=== PATIENT | male | born 1995 | race Caucasian/White ===

== ENCOUNTER 2018-04-30 08:56 | Emergency (ER) | payer MEDICAID, OTHER ==
[~2018-04-30] VITALS: Ht 188 cm; Wt 96.0 kg
[2018-04-30] MEDS ORDERED: CEFTRIAXONE SODIUM 250 MG/VIAL IM ONE (10:00)
[2018-04-30] MEDS ORDERED: IBUPROFEN 800MG TABLET PO ONE (10:00)
[2018-04-30] MEDS ORDERED: PHENAZOPYRIDINE HCL 100MG TABLET PO ONE (10:00)
[2018-04-30] MEDS ORDERED: AZITHROMYCIN 500 MG TABLET PO ONE (10:00)
[2018-04-30 10:41] LABS: CLARITY URINE CLOUDY (CLEAR); COLOR URINE YELLOW (YELLOW); KETONES URINE 3+ (NEGATIVE); LEUKOCYTE ESTERASE URINE 1+ (NEGATIVE); NITRITE URINE NEGATIVE (NEGATIVE); OCCULT BLOOD URINE 2+ (NEGATIVE); PROTEIN URINE 2+ (NEGATIVE); SPECIFIC GRAVITY URINE 1.048 (1.005-1.030)
[2018-04-30 10:51] VITALS: BP 146/78
[2018-05-01 09:11] LABS: HIV SCREEN 4G Non Reactive (Non Reactive)
== END 2018-04-30 10:55 | disposition home or self-care (01) ==
LOC: ER 09:58
DX: R30.0 Dysuria (principal); E11.9 Type 2 diabetes mellitus without complications
CPT/HCPCS: 81003; 86592; 87077; 87086; 87389; 96372; 99284; J0696; 87591

== ENCOUNTER 2020-04-13 06:10 | Emergency (ER) | payer OTHER ==
[~2020-04-13] VITALS: Ht 180.3 cm; Wt 85.0 kg
[~2020-04-13 06:10] MED LIST: INSU100I24 SQ; METF-414 MT
[2020-04-13 07:25] LABS: BASOPHILS % 0.5 % (0.0-2.0); EOSINOPHILS % 0.1 % (0.0-5.0); HEMATOCRIT. 50.4 % (42.0-52.0); HEMOGLOBIN. 17.2 g/dL (14.0-18.0); LYMPHOCYTES % 9.4 % (20.0-50.0); MEAN CORPUSCULAR HEMOGLOBIN 30.3 pg (28.0-32.0); MEAN CORPUSCULAR VOLUME 88.6 fL (80.0-94.0); MEAN PLATELET VOLUME 9.6 fl (7.4-10.4); MONOCYTES % 2.1 % (2.0-8.0); NEUTROPHILS % 87.9 % (40.0-76.0); PLATELET 251 x1000/uL (130-400); RED BLOOD CELL COUNT 5.69 mill/uL (4.7-6.1); RED CELL DISTRIBUTION WIDTH 13.4 % (11.6-14.6)
[2020-04-13 07:31] LABS: CHLORIDE 94 mEq/L (98-107)
[2020-04-13 07:36] LABS: ETHANOL BLOOD 128 mg/dL
[2020-04-13 09:04] VITALS: BP 124/81
== END 2020-04-13 09:08 | disposition home or self-care (01) ==
LOC: ER 06:49
DX: F10.229 Alcohol dependence with intoxication, unspecified (principal); R53.1 Weakness; E11.9 Type 2 diabetes mellitus without complications; Y90.6 Blood alcohol level of 120-199 mg/100 ml; Z79.4 Long term (current) use of insulin
CPT/HCPCS: 36415; 80053; 80320; 85025; 93005; 99284; G0480

== ENCOUNTER 2022-06-19 09:57 | Emergency (ER) | payer OTHER ==
[~2022-06-19] VITALS: Ht 177.8 cm; Wt 91.0 kg
[2022-06-19] MEDS ORDERED: ONDANSETRON HCL 4MG/2ML INJ IV STA (10:14)
[2022-06-19] MEDS ORDERED: SODIUM CHLORIDE 0.9% 1,000 ML IV ONE (10:15)
[2022-06-19] MEDS ORDERED: FAMOTIDINE 20MG/2ML VIAL IV ONE (10:15)
[2022-06-19 10:40] LABS: BASOPHILS % 0.5 % (0.0-2.0); EOSINOPHILS % 0.2 % (0.0-5.0); HEMATOCRIT. 48.8 % (42.0-52.0); HEMOGLOBIN. 17.1 g/dL (14.0-18.0); MEAN CORPUSCULAR HEMOGLOBIN 30.8 pg (28.0-32.0); MEAN PLATELET VOLUME 9.4 fl (7.4-10.4); MONOCYTES % 2.7 % (2.0-8.0); NEUTROPHILS % 76.6 % (40.0-76.0); PLATELET 327 x1000/uL (130-400); RED BLOOD CELL COUNT 5.54 mill/uL (4.7-6.1); RED CELL DISTRIBUTION WIDTH 14.1 % (11.6-14.6)
[2022-06-19 10:48] LABS: CHLORIDE 100 mEq/L (98-107)
[2022-06-19 10:56] LABS: ETHANOL BLOOD 53 mg/dL
[2022-06-19] MEDS ORDERED: PIPERACILLIN/TAZ 3.375G PREMIX 50 ML IV ONE (11:15)
[2022-06-19] MEDS ORDERED: SODIUM CHLORIDE 0.9% 1000ML BAG (SEPSIS BOLUS) IV ONE (11:15)
[2022-06-19] MEDS ORDERED: INSULIN REGULAR (HUMULIN R) UD 100 UNITS/ML SYR SUBCUT ONE (11:30)
[2022-06-19] MEDS ORDERED: INSULIN REGULAR (HUMULIN R) 300UNITS/3ML VIAL SUBCUT NR (11:30)
[2022-06-19] MEDS ORDERED: FAMOTIDINE 20MG/2ML VIAL IV NR (12:00)
[2022-06-19] MEDS ORDERED: ONDANSETRON HCL 4MG/2ML INJ IV NR ×2 (12:00→14:00)
[2022-06-19 15:34] VITALS: BP 153/107
== END 2022-06-19 16:00 | disposition short-term general hospital (02) ==
LOC: ER 09:57 → CANBEDREQ 15:54 → ER 16:00
DX: A41.9 Sepsis, unspecified organism (principal); K81.9 Cholecystitis, unspecified; E11.65 Type 2 diabetes mellitus with hyperglycemia; F17.210 Nicotine dependence, cigarettes, uncomplicated; Z82.49 Family history of ischemic heart disease and other diseases of the circulatory system; Z20.822 Contact with and (suspected) exposure to COVID-19; Z79.84 Long term (current) use of oral hypoglycemic drugs
CPT/HCPCS: 36415; 71045; 76705; 80053; 80320; 82010; 82962; 83605; 83690; 83735; 84145; 84484; 85025; 87040; 93005; 96365; 96372; 96375; 99291; J1815; J2405; J2543; J3490; J7030; Z7610; G0480